=== PATIENT | female | born 1980 | race Caucasian/White ===

== ENCOUNTER 2023-07-27 08:17 | Day surgery (SDC) | payer OTHER ==
[~2023-07-27] VITALS: Ht 160 cm; Wt 69.4 kg
[2023-07-27] MEDS ORDERED: AMITRIPTYLINE100 M1 PO (08:23)
[2023-07-27] MEDS ORDERED: XANAX0.5 MG PO (08:24)
[2023-07-27] MEDS ORDERED: SODIUM CHLORIDE 0.9% 10 ML SYR ONE ×2 (08:36→09:21)
[2023-07-27 08:44] LABS: HCG SERUM/URINE (NEG/POS) NEGATIVE (NEGATIVE)
[2023-07-27] MEDS ORDERED: VRAYLAR3 MG PO (08:48)
[2023-07-27] MEDS ORDERED: SEROQUEL100 MG PO (08:49)
[2023-07-27] MEDS ORDERED: MOTRIN800 MG PO (08:50)
[2023-07-27] MEDS ORDERED: LISINOPRIL20 M1 PO (08:51)
[2023-07-27] MEDS ORDERED: LOPRESSOR25 M1 PO (08:51)
[2023-07-27] MEDS ORDERED: UBRELVY100 MG PO (08:52)
[2023-07-27] MEDS ORDERED: MIDAZOLAM HCL 2 MG/2 ML VIAL ONE (09:21)
[2023-07-27] MEDS ORDERED: LIDOCAINE MPF 1% (10 MG/ML) 5 ML VIAL ONE (10:23)
[2023-07-27] MEDS ORDERED: TRIAMCINOLONE ACETONIDE 200 MG/5 ML VIAL ONE (10:23)
[2023-07-27] MEDS ORDERED: BUPIVACAINE HCL PF 0.5 % 50 MG/10 ML SDV ONE (10:23)
[2023-07-27 11:31] VITALS: BP 108/71
== END 2023-07-27 11:01 | disposition home or self-care (01) ==
LOC: ORM 08:17
PROVIDERS: ATTEND Student in an Organized Health Care Education/Training Program
DX: G89.4 Chronic pain syndrome (principal); M46.1 Sacroiliitis, not elsewhere classified